=== PATIENT | male | born 1945 | race Caucasian/White ===

== ENCOUNTER 2020-12-13 05:59 | Outpatient (REF) | payer MEDICARE, SELFPAY ==
[2020-12-16 14:57] LABS: Free Prostate Spec Ag 1.2 ng/mL; Percent Free Prostate Spec Ag 29 % (calc) (>25); Prostate Specific Ag Total 4.1 ng/mL (< OR = 4.0)
== END 2020-12-13 06:00 | disposition home or self-care (01) ==
LOC: HO.LAB 05:59
PROVIDERS: Visit Provider Urology
DX: N40.1 Benign prostatic hyperplasia with lower urinary tract symptoms (principal); Z12.5 Encounter for screening for malignant neoplasm of prostate
CPT/HCPCS: 36415; 84153; 84154

== ENCOUNTER 2021-03-21 06:05 | Outpatient (REF) | payer MEDICARE, SELFPAY ==
[2021-03-21 07:52] LABS: PSA,Total (Free>4and<10) 3.12 ng/mL (0.00-4.00)
== END 2021-03-21 06:06 | disposition home or self-care (01) ==
LOC: HO.LAB 06:05
PROVIDERS: PCP Internal Medicine; Visit Provider Urology
DX: N40.1 Benign prostatic hyperplasia with lower urinary tract symptoms (principal); Z12.5 Encounter for screening for malignant neoplasm of prostate
CPT/HCPCS: 36415; 84153

== ENCOUNTER → 2021-03-26 13:36 | Outpatient (BNVA) | payer MEDICARE, SELFPAY | PROVIDERS: PCP Internal Medicine; Visit Provider Urology | DX: N52.9 Male erectile dysfunction, unspecified (principal); N40.1 Benign prostatic hyperplasia with lower urinary tract symptoms | CPT/HCPCS: 99212 ==

== ENCOUNTER 2021-09-22 06:07 | Outpatient (REF) | payer MEDICARE, SELFPAY ==
[2021-09-22 07:48] LABS: Prostate Specific Antigen 2.89 ng/mL (<0.05-4.0)
== END 2021-09-22 06:08 | disposition home or self-care (01) ==
LOC: HO.LAB 06:07
PROVIDERS: PCP Internal Medicine; Visit Provider Urology
DX: Z12.5 Encounter for screening for malignant neoplasm of prostate (principal); N40.1 Benign prostatic hyperplasia with lower urinary tract symptoms; N13.8 Other obstructive and reflux uropathy
CPT/HCPCS: 36415; 84153

== ENCOUNTER → 2021-10-03 12:30 | Outpatient (BNVA) | payer MEDICARE, SELFPAY | PROVIDERS: PCP Internal Medicine; Visit Provider Urology | CPT/HCPCS: Q3014 ==

== ENCOUNTER 2022-01-13 06:00 | Outpatient (REF) | payer MEDICARE, SELFPAY ==
[2022-01-13 08:15] LABS: PSA,Total (Free>4and<10) 1.84 ng/mL (0.00-4.00)
== END 2022-01-13 06:01 | disposition home or self-care (01) ==
LOC: HO.LAB 06:00
PROVIDERS: PCP Internal Medicine; Visit Provider Urology
DX: Z12.5 Encounter for screening for malignant neoplasm of prostate (principal); N40.1 Benign prostatic hyperplasia with lower urinary tract symptoms
CPT/HCPCS: 36415; 84153

== ENCOUNTER → 2022-01-21 10:34 | Outpatient (BNVA) | payer MEDICARE, SELFPAY | PROVIDERS: PCP Internal Medicine; Visit Provider Urology | DX: N40.1 Benign prostatic hyperplasia with lower urinary tract symptoms (principal); R35.1 Nocturia; R39.15 Urgency of urination; N52.9 Male erectile dysfunction, unspecified; Z79.899 Other long term (current) drug therapy | CPT/HCPCS: Q3014 ==

== ENCOUNTER 2022-07-21 06:01 | Outpatient (REF) | payer MEDICARE, SELFPAY ==
[2022-07-21 08:12] LABS: Prostate Specific Antigen 0.97 ng/mL (<0.05-4.0)
== END 2022-07-21 06:02 | disposition home or self-care (01) ==
LOC: HO.LAB 06:01
PROVIDERS: PCP Internal Medicine; Visit Provider Urology
DX: Z12.5 Encounter for screening for malignant neoplasm of prostate (principal); N52.9 Male erectile dysfunction, unspecified
CPT/HCPCS: 36415; 84153

== ENCOUNTER → 2022-07-29 10:01 | Outpatient (BNVA) | payer MEDICARE, SELFPAY | PROVIDERS: PCP Internal Medicine; Visit Provider Urology | DX: N40.1 Benign prostatic hyperplasia with lower urinary tract symptoms (principal); R39.15 Urgency of urination; R35.1 Nocturia; N52.9 Male erectile dysfunction, unspecified | CPT/HCPCS: Q3014 ==

== ENCOUNTER 2023-01-19 06:03 | Outpatient (REF) | payer MEDICARE, SELFPAY ==
[2023-01-19 08:38] LABS: Prostate Specific Antigen 0.89 ng/mL (<0.05-4.0)
== END 2023-01-19 06:04 | disposition home or self-care (01) ==
LOC: HO.LAB 06:03
PROVIDERS: PCP Internal Medicine; Visit Provider Urology
DX: N40.1 Benign prostatic hyperplasia with lower urinary tract symptoms (principal); Z12.5 Encounter for screening for malignant neoplasm of prostate
CPT/HCPCS: 36415; 84153

== ENCOUNTER → 2023-01-29 11:41 | Outpatient (BNVA) | payer MEDICARE, SELFPAY | PROVIDERS: PCP Internal Medicine; Visit Provider Urology | DX: N52.9 Male erectile dysfunction, unspecified (principal); N40.1 Benign prostatic hyperplasia with lower urinary tract symptoms; R39.15 Urgency of urination; R35.1 Nocturia | CPT/HCPCS: 51798; 99212 ==

== ENCOUNTER 2023-08-03 09:18 | Outpatient (AMB) | payer MEDICARE, SELFPAY ==
--- NOTE | 2023-08-03 09:22 | MHC.OFFVIS ---
Intake Intake Visit Reasons: 6M PVR Intake Note: Patient is present for PVR Urology Med: Finasteride, Tadalafil (Patient is no longer on Tamsulosin) Antibiotic Allergy: Cipro, Amoxicillin Blood Thinner: None Pharmacy: [facility] PVR: 0 Allergies Amoxicillin Trihydrate Allergy (Unknown, Verified 08/03/23 09:27) Unknown ciprofloxacin [Cipro HC] Allergy (Unknown, Verified 08/03/23 09:27) Unknown hydrocortisone [Cipro HC] Allergy (Unknown, Verified 08/03/23 09:27) Unknown HPI HPI Comments History of Present Illness Details Hernan is a pleasant male. He is a patient of Dr. Chavez. He is here for follow urologic condition - bladder outlet obstruction - erectile dysfunction PVR low Continued good response to finasteride with PSA - takes Wednesday, Wednesday, Wednesday PSA 07/04 2.9, 12/05 4.1, 04/04 3.1, 10/05 2.9, 02/03 1.8, 08/06 1.0, 02/04 0.9, Lower urinary tract symptoms Unable to take higher alpha-alba - secondary to hypotension - previously took Flomax Current symptoms mild urgency, nocturia 1-2 Finasteride added previously for persistent urge - good response Therapeutic plan - check PSA in 12 months Erectile dysfunction Has headache with sildenafil 50 mg, had blurry vision with daily 5 mg Cialis May try 20 mg tadalafil on as-needed basis PFSH Medical History Migraine headache Palpitations HTN (hypertension) Osteopenia Diverticulosis Hypercholesterolemia Erectile dysfunction Benign prostatic hyperplasia with lower urinary tract symptoms Review of Systems Const Denies chills and Denies fever(s) Card Reports no additional complaints and Denies syncope Resp Denies cough GI Denies abdominal pain and Denies heartburn Reports as per HPI and Denies change in libido Neuro Denies syncope Psych Denies change in libido Endo Denies change in libido Physical Exam Const General: cooperative, healthy appearing, comfortable and no acute distress Orientation/consciousness: patient oriented x3 HEENT Face and sinus: Yes normal facial exam Mouth: moist mucous membranes Neck Neck: Yes normal visual inspection, Yes full ROM and Yes trachea midline Chest Chest palpation & inspection: normal inspection of the chest Resp Effort & Inspection: normal respiratory effort, able to speak in complete sentences and no respiratory distress GI Inspection: Yes normal to inspection Back/Spine/Pelvis Cervical Spine: normal cervical lordosis Thoracic/Lumbar Spine: thoracic and lumbar spine normal to inspection Skin General skin exam: no rashes or lesions noted Neuro General: patient oriented x3, gait normal, tone normal and moves all extremities Extrem General: Yes normal to inspection and Yes capillary refill normal Office Procedures Post Void Residual Post Residual Void Post Void Residual (PVR): 0 25377-Tbqx Void Residual by ultrasound Assessment & Plan Assessment & Plan (1) Benign prostatic hyperplasia with lower urinary tract symptoms: Code(s): N40.1 - Benign prostatic hyperplasia with lower urinary tract symptoms (2) Erectile dysfunction: Code(s): N52.9 - Male erectile dysfunction, unspecified Plan Twelve month follow-up Orders: Orders AMB Post Void Residual by ultrasound Today N40.1 - Benign prostatic hyperplasia with lower urinary tract symptoms AMB Urinalysis Automated Today Z13.9 - Encounter for screening, unspecified PSA,Total (Free>4and<10) 364 Days N40.1 - Benign prostatic hyperplasia with lower urinary tract symptoms Patient Instructions: Imaging studies, laboratory and physical exam results were discussed and reviewed in detail. No major barriers to patient understanding were identified. An opportunity to ask questions regarding the treatment plan was provided. All questions were answered. The patient expressed understanding and agreement with the above treatment plan. The patient is aware they should contact our office by phone for worsening of their current condition or the appearance of new urologic symptoms. Compliance is encouraged with any medications and followup testing that is ordered. It is a privilege to participate in the urologic care of your patient. If you have any questions or concerns regarding treatment for the above conditions, or other urologic issues, please do not hesitate to contact me. The office telephone contact is [phone]. This note is constructed using voice recognition software. While every effort has been made to ensure accuracy passenger car inspector errors may have been included. Yours sincerely, Dr Gumaro Caba MD, [facility] - Urology Providers of Expert, Compassionate Care for the Genitourinary System Coding Level of Care Code Est Pt Level 4 (43197) Diagnoses Benign prostatic hyperplasia with lower urinary tract symptoms N40.1 Erectile dysfunction N52.9 CPT Codes Post Residual Void - PVR CPT Code: 29308-Bpdk Void Residual by ultrasound ([id number])
== END 2023-08-03 10:05 | disposition home or self-care (01) ==
PROVIDERS: PCP Internal Medicine; Visit Provider Urology
DX: N40.1 Benign prostatic hyperplasia with lower urinary tract symptoms (principal); N52.9 Male erectile dysfunction, unspecified
CPT/HCPCS: 99214

== ENCOUNTER → 2023-08-03 09:18 | Outpatient (BNVA) | payer MEDICARE, SELFPAY | PROVIDERS: Visit Provider Urology | DX: N40.1 Benign prostatic hyperplasia with lower urinary tract symptoms (principal); N13.8 Other obstructive and reflux uropathy; N52.9 Male erectile dysfunction, unspecified; R35.1 Nocturia | CPT/HCPCS: 51798; 99212 ==

== ENCOUNTER 2024-08-29 06:03 | Outpatient (REF) | payer MEDICARE, SELFPAY | END 2024-08-29 06:04 | disposition home or self-care (01) | LOC: HO.LAB 06:03 | PROVIDERS: PCP Internal Medicine; Visit Provider Urology | DX: N40.1 Benign prostatic hyperplasia with lower urinary tract symptoms (principal); Z12.5 Encounter for screening for malignant neoplasm of prostate | CPT/HCPCS: 36415; 84153 ==

== ENCOUNTER 2024-09-05 10:11 | Outpatient (AMB) | payer MEDICARE, SELFPAY ==
--- NOTE | 2024-09-05 10:14 | MHC.OFFVIS ---
Intake Visit Reasons: 1Y PSA/PVR(set) Intake Note: Patient is present for PVR/PSA Urology Med: Finasteride, Tadalafil (Patient is no longer on Tamsulosin) Antibiotic Allergy: Cipro, Amoxicillin Blood Thinner: None PVR: 0ML'S TODAY'S PVR:0ML'S Stranding Supervisor Required: No Allergies Amoxicillin Trihydrate Allergy (Unknown, Verified 09/05/24 10:15) Unknown ciprofloxacin [Cipro HC] Allergy (Unknown, Verified 09/05/24 10:15) Unknown hydrocortisone [Cipro HC] Allergy (Unknown, Verified 09/05/24 10:15) Unknown HPI Comments Details: Hernan is a pleasant male. He is a patient of Dr. Chavez. 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 Lower urinary tract symptoms Unable to take higher alpha-alba - secondary to hypotension - previously took Flomax Current symptoms mild urgency, nocturia 1-2 Finasteride added previously for persistent urge - good response Therapeutic plan - check PSA in 12 months Erectile dysfunction Has headache with sildenafil 50 mg, had blurry vision with daily 5 mg Cialis May try 20 mg tadalafil on as-needed basis [facility] Medical History Migraine headache Palpitations HTN (hypertension) Osteopenia Diverticulosis Hypercholesterolemia Erectile dysfunction Benign prostatic hyperplasia with lower urinary tract symptoms Review of Systems Const Denies chills and Denies fever(s) Card Reports no additional complaints and Denies syncope Resp Denies cough GI Denies abdominal pain and Denies heartburn Reports as per HPI and Denies change in libido Neuro Denies syncope Psych Denies change in libido Endo Denies change in libido Physical Exam Const General: cooperative, healthy appearing, comfortable and no acute distress Orientation/consciousness: patient oriented x3 HEENT Face and sinus: Yes normal facial exam Mouth: moist mucous membranes Neck Neck: Yes normal visual inspection, Yes full ROM and Yes trachea midline Chest Chest palpation & inspection: normal inspection of the chest Resp Effort & Inspection: normal respiratory effort, able to speak in complete sentences and no respiratory distress GI Inspection: Yes normal to inspection Back/Spine/Pelvis Cervical Spine: normal cervical lordosis Thoracic/Lumbar Spine: thoracic and lumbar spine normal to inspection Skin General skin exam: no rashes or lesions noted Neuro General: patient oriented x3, gait normal, tone normal and moves all extremities Extrem General: Yes normal to inspection and Yes capillary refill normal Office Procedures Post Void Residual Post Residual Void Post Void Residual (PVR): 0 [id number]-Cixq Void Residual by ultrasound Results AMB Urinalysis, Automated UA Leukoctes 0 Franco/uL Last Edit by JOAN Reno on 09/05/24 10:22 UA Nitrite Negative Last Edit by JOAN Reno on 09/05/24 10:22 UA Urobilinogen 0.2 mg/dL Last Edit by JOAN Reno on 09/05/24 10:22 UA Protein 15 mg/dL Last Edit by JOAN Reno on 09/05/24 10:22 UA pH 7.0 Last Edit by JOAN Reno on 09/05/24 10:22 UA Blood 0 Ruben/uL Last Edit by JOAN Reno on 09/05/24 10:22 UA Specific [place] 1.015 Last Edit by JOAN Reno on 09/05/24 10:22 UA Ketone Negative Last Edit by JOAN Reno on 09/05/24 10:22 UA Bilirubin 0 mg/dL Last Edit by JOAN Reno on 09/05/24 10:22 UA Glucose 0 mg/dL Last Edit by JOAN Reno on 09/05/24 10:22 Results Reviewed Results Reviewed: Laboratory Last Values Urine pH (Auto) 7.0 09/05/24 10:20 Specific [place] (Auto) 1.015 09/05/24 10:20 Urine Protein (Auto) 15 mg/dL 09/05/24 10:20 Glucose (UA)(Auto) 0 mg/dL 09/05/24 10:20 Urine Ketones (Auto) Negative 09/05/24 10:20 Urine Blood (Auto) 0 Ruben/uL 09/05/24 10:20 Urine Nitrite (Auto) Negative 09/05/24 10:20 Urine Bilirubin (Auto) 0 mg/dL 09/05/24 10:20 Urine Urobilinogen (Auto) 0.2 mg/dL 09/05/24 10:20 Leukocyte Esterase (Auto) 0 Franco/uL 09/05/24 10:20 Assessment & Plan Assessment & Plan (1) Erectile dysfunction: Code(s): N52.9 - Male erectile dysfunction, unspecified Category: Medical (2) Benign prostatic hyperplasia with lower urinary tract symptoms: Code(s): N40.1 - Benign prostatic hyperplasia with lower urinary tract symptoms Category: Medical Plan Trial tamsulosin Two month follow-up Orders: Orders AMB Urinalysis Automated Today Z13.9 - Encounter for screening, unspecified Medications: New tamsulosin 0.4 mg PO BEDTIME 30 days 30 caps 1RF N40.1 - Benign prostatic hyperplasia with lower urinary tract symptoms, R35.1 - Nocturia Patient Instructions: Imaging studies, laboratory and physical exam results were discussed and reviewed in detail. No major barriers to patient understanding were identified. An opportunity to ask questions regarding the treatment plan was provided. All questions were answered. The patient expressed understanding and agreement with the above treatment plan. The patient is aware they should contact our office by phone for worsening of their current condition or the appearance of new urologic symptoms. Compliance is encouraged with any medications and followup testing that is ordered. It is a privilege to participate in the urologic care of your patient. If you have any questions or concerns regarding treatment for the above conditions, or other urologic issues, please do not hesitate to contact me. The office telephone contact is [phone]. This note is constructed using voice recognition software. While every effort has been made to ensure accuracy pickle sorter errors may have been included. Yours sincerely, Dr Gumaro Caba MD, [facility] - Urology Providers of Expert, Compassionate Care for the Genitourinary System Coding Level of Care Code Est Pt Level 4 (80152) Diagnoses Erectile dysfunction N52.9 Benign prostatic hyperplasia with lower urinary tract symptoms N40.1 CPT Codes Post Residual Void - PVR CPT Code: 49720-Xfof Void Residual by ultrasound ([id number])
== END 2024-09-05 10:59 | disposition home or self-care (01) ==
PROVIDERS: PCP Internal Medicine; Referring Provider Internal Medicine; Visit Provider Urology
DX: N52.9 Male erectile dysfunction, unspecified (principal); N40.1 Benign prostatic hyperplasia with lower urinary tract symptoms; Z13.9 Encounter for screening, unspecified
CPT/HCPCS: 99214

== ENCOUNTER → 2024-09-05 10:11 | Outpatient (BNVA) | payer MEDICARE, SELFPAY | PROVIDERS: PCP Internal Medicine; Visit Provider Urology | DX: N40.1 Benign prostatic hyperplasia with lower urinary tract symptoms (principal); N13.8 Other obstructive and reflux uropathy; N32.0 Bladder-neck obstruction; N52.9 Male erectile dysfunction, unspecified | CPT/HCPCS: 51798; 81003; 99212 ==

== ENCOUNTER 2024-10-18 10:50 | Outpatient (AMB) | payer MEDICARE, SELFPAY ==
--- NOTE | 2024-10-18 10:50 | A.OFFVIS_ITS ---
Intake Visit Reasons: 2M Med Review(tamsulosin) Intake Note: Patient is present for 2M MED REVIEW Urology Medication:TAMSULOSIN Antibiotic Allergy:AMOXICILLIN,CIPROFLOXACIN Blood Thinner:NONE Blender Machine Operator Required: No Allergies Amoxicillin Trihydrate Allergy (Unknown, Verified 10/18/24 10:51) Unknown ciprofloxacin [Cipro HC] Allergy (Unknown, Verified 10/18/24 10:51) Unknown hydrocortisone [Cipro HC] Allergy (Unknown, Verified 10/18/24 10:51) Unknown HPI Comments Details: Hernan is a pleasant male. He is a patient of Dr. Chavez. 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 Lower urinary tract symptoms Unable to take higher alpha-alba - secondary to hypotension - previously took Flomax Current symptoms mild urgency, nocturia 1-2 Finasteride added previously for persistent urge - good response Therapeutic plan - check PSA in 12 months Erectile dysfunction Has headache with sildenafil 50 mg, had blurry vision with daily 5 mg Cialis May try 20 mg tadalafil on as-needed basis PFSH Medical History Migraine headache Palpitations HTN (hypertension) Osteopenia Diverticulosis Hypercholesterolemia Erectile dysfunction Benign prostatic hyperplasia with lower urinary tract symptoms Review of Systems Const Denies chills and Denies fever(s) Card Reports no additional complaints and Denies syncope Resp Denies cough GI Denies abdominal pain and Denies heartburn Reports as per HPI and Denies change in libido Neuro Denies syncope Psych Denies change in libido Endo Denies change in libido Physical Exam Const General: cooperative, healthy appearing, comfortable and no acute distress Orientation/consciousness: patient oriented x3 HEENT Face and sinus: Yes normal facial exam Mouth: moist mucous membranes Neck Neck: Yes normal visual inspection, Yes full ROM and Yes trachea midline Chest Chest palpation & inspection: normal inspection of the chest Resp Effort & Inspection: normal respiratory effort, able to speak in complete sentences and no respiratory distress GI Inspection: Yes normal to inspection Back/Spine/Pelvis Cervical Spine: normal cervical lordosis Thoracic/Lumbar Spine: thoracic and lumbar spine normal to inspection Skin General skin exam: no rashes or lesions noted Neuro General: patient oriented x3, gait normal, tone normal and moves all extremities Extrem General: Yes normal to inspection and Yes capillary refill normal Assessment & Plan Assessment & Plan (1) Benign prostatic hyperplasia with lower urinary tract symptoms: Code(s): N40.1 - Benign prostatic hyperplasia with lower urinary tract symptoms Category: Medical (2) Erectile dysfunction: Code(s): N52.9 - Male erectile dysfunction, unspecified Category: Medical Plan Renew prescriptions Six-month follow-up PVR Medications: New tadalafil On demand medication take 60 minutes before intended activity - [facility] [address] [id number] 20 mg PO ONCE PRN 30 tabs 0RF sexual activity 30 days N52.9 - Male erectile dysfunction, unspecified Changed From tamsulosin 0.4 mg PO BEDTIME 30 days 30 caps 1RF N40.1 - Benign prostatic hyperplasia with lower urinary tract symptoms, R35.1 - Nocturia To tamsulosin 0.4 mg PO BEDTIME 90 caps 1RF 90 days N40.1 - Benign prostatic hyperplasia with lower urinary tract symptoms, R35.1 - Nocturia Discontinued tadalafil Discontinued Reason: Patient Completed Course 5 mg PO DAILY 90 days 90 tabs 0RF sexual activity N52.01 - Erectile dysfunction due to arterial insufficiency Patient Instructions: Imaging studies, laboratory and physical exam results were discussed and reviewed in detail. No major barriers to patient understanding were identified. An opportunity to ask questions regarding the treatment plan was provided. All questions were answered. The patient expressed understanding and agreement with the above treatment plan. The patient is aware they should contact our office by phone for worsening of their current condition or the appearance of new urologic symptoms. Compliance is encouraged with any medications and followup testing that is ordered. It is a privilege to participate in the urologic care of your patient. If you h ave any questions or concerns regarding treatment for the above conditions, or other urologic issues, please do not hesitate to contact me. The office telephone contact is [phone]. This note is constructed using voice recognition software. While every effort has been made to ensure accuracy epic application coordinator errors may have been included. Yours sincerely, Dr Gumaro Caba MD, [facility] - Urology Providers of Expert, Compassionate Care for the Genitourinary System Coding Level of Care Code Est Pt Level 4 (90183) Diagnoses Benign prostatic hyperplasia with lower urinary tract symptoms N40.1 Erectile dysfunction N52.9
== END 2024-10-18 12:33 | disposition home or self-care (01) ==
LOC: HO.HUSH 10:50
PROVIDERS: PCP Internal Medicine; Visit Provider Urology
DX: N40.1 Benign prostatic hyperplasia with lower urinary tract symptoms (principal); N52.9 Male erectile dysfunction, unspecified
CPT/HCPCS: 99214

== ENCOUNTER → 2024-10-18 10:50 | Outpatient (BNVA) | payer MEDICARE, SELFPAY | PROVIDERS: PCP Internal Medicine; Visit Provider Urology | DX: N40.1 Benign prostatic hyperplasia with lower urinary tract symptoms (principal); R35.1 Nocturia; N52.01 Erectile dysfunction due to arterial insufficiency | CPT/HCPCS: 99212 ==

== ENCOUNTER 2025-04-17 09:59 | Outpatient (AMB) | payer MEDICARE, SELFPAY ==
--- NOTE | 2025-04-17 10:00 | MHC.OFFVIS ---
Intake Visit Reasons: 6m f/u pvr Intake Note: Patient is present for 6M/PVR Urology Medication:TAMSULOSIN,FINASTERIDE,TADALAFIL Antibiotic Allergy:AMOXICILLIN CIPROFLOXACIN Blood Thinner:NONE Todays PVR:0ML'S Gas Appliance Servicer Required: No Allergies Amoxicillin Trihydrate Allergy (Unknown, Verified 04/17/25 10:02) Unknown ciprofloxacin [Cipro HC] Allergy (Unknown, Verified 04/17/25 10:02) Unknown hydrocortisone [Cipro HC] Allergy (Unknown, Verified 04/17/25 10:02) Unknown HPI Comments Details: Hernan is a pleasant male. He is a patient of Dr. Chavez. He is here for follow urologic condition - bladder outlet obstruction - erectile dysfunction Six-month follow-up Previously with Retrial of tamsulosin due to nocturia Re trial tadalafil 20 mg for erectile function Did have decrease in nocturia with restarting tamsulosin. Has noticed weak stream and on questioning less than 12 in. Had reaction to tadalafil so stopped using Recommend office uroflow with cystoscopy Continued good response to finasteride with PSA - takes Wednesday, Wednesday, Wednesday PSA 07/04 2.9, 12/05 4.1, 04/04 3.1, 10/05 2.9, 02/03 1.8, 08/06 1.0, 02/04 0.9, 09/07 1.2 Urinary Symptoms Review - Frequency of nocturia: Typically twice per night, up to four times per night with excessive fluid intake. - Urination stream: Reported as weak. - Emptying bladder: Occurring without issue. - Urine odor: Noted as strong; advised to increase fluid intake. - Current medications: Tamsulosin restarted for nocturia, finasteride taken Mondays, Wednesdays, and Fridays. - Previous attempt to use tadalafil for erectile dysfunction resulted in visual disturbances, leading to discontinuation. Lower urinary tract symptoms Unable to take higher alpha-alba - secondary to hypotension - previously took Flomax Current symptoms mild urgency, nocturia 1-2 Finasteride added previously for persistent urge - good response Therapeutic plan - check PSA yearly Erectile dysfunction Has headache with sildenafil 50 mg, had blurry vision with daily 5 mg Cialis May try 20 mg tadalafil on as-needed basis PFSH Medical History Migraine headache Palpitations HTN (hypertension) Osteopenia Diverticulosis Hypercholesterolemia Erectile dysfunction Benign prostatic hyperplasia with lower urinary tract symptoms Review of Systems Const Denies chills and Denies fever(s) Card Reports no additional complaints and Denies syncope Resp Denies cough GI Denies abdominal pain and Denies heartburn Reports as per HPI and Denies change in libido Neuro Denies syncope Psych Denies change in libido Endo Denies change in libido Physical Exam Const General: cooperative, healthy appearing, comfortable and no acute distress Orientation/consciousness: patient oriented x3 HEENT Face and sinus: Yes normal facial exam Mouth: moist mucous membranes Neck Neck: Yes normal visual inspection, Yes full ROM and Yes trachea midline Chest Chest palpation & inspection: normal inspection of the chest Resp Effort & Inspection: normal respiratory effort, able to speak in complete sentences and no respiratory distress GI Inspection: Yes normal to inspection Back/Spine/Pelvis Cervical Spine: normal cervical lordosis Thoracic/Lumbar Spine: thoracic and lumbar spine normal to inspection Skin General skin exam: no rashes or lesions noted Neuro General: patient oriented x3, gait normal, tone normal and moves all extremities Extrem General: Yes normal to inspection and Yes capillary refill normal Office Procedures Post Void Residual Post Residual Void Post Void Residual (PVR): 0 81629-Alux Void Residual by ultrasound Assessment & Plan Assessment & Plan (1) Benign prostatic hyperplasia with lower urinary tract symptoms: Code(s): N40.1 - Benign prostatic hyperplasia with lower urinary tract symptoms Category: Medical (2) Erectile dysfunction: Code(s): N52.9 - Male erectile dysfunction, unspecified Category: Medical Plan Plan 1. Lower Urinary Tract Symptoms Luts Plan: Schedule uroflowmetry and possible cystoscopy. Continue current medications and reassess post-evaluation. 2. Nocturia Plan: Monitor nocturia frequency. Recommend increased hydration. Discuss fluid intake impacts on nocturia. 3. Adverse Medication Effects - Visual Disturbance Plan: Discontinue tadalafil and sildenafil due to visual side effects. Discuss alternative options if needed. Discussion Notes During our discussion, I addressed the patient's ongoing Lower Urinary Tract Symptoms (LUTS) and nocturia despite medication adjustments. We emphasized the weak urinary stream and planned further diagnostic evaluations, including uroflowmetry and cystoscopy, to assess bladder function. We reviewed the side effects experienced with tadalafil and sildenafil, specifically visual disturbances, and agreed on discontinuing these medications due to adverse effects. I emphasized the importance of cautious fluid intake to manage nocturia and discussed why increased hydration might help mitigate strong urine odor. We concluded with a plan to follow up on diagnostic results to determine the necessity of procedural intervention for the urinary stream problems. Patient Instructions - Drink more water and less Propel to improve urine odor. - Maintain current medication schedule: tamsulosin daily and finasteride on Mon/Wed/Fri. - Avoid excessive fluids in the evening to reduce nocturia. - Discontinue sildenafil and tadalafil due to vision issues. - Follow care instructions post-uroflow testing and cystoscopy if required. - Contact the office if experiencing worsening urinary symptoms or other concerns. Patient Instructions: This note is constructed using voice recognition software. While every effort has been made to ensure accuracy vp software engineering errors may have been included. Imaging studies, laboratory and physical exam results were discussed and reviewed in detail. No major barriers to patient understanding were identified. An opportunity to ask questions regarding the treatment plan was provided. All questions were answered. The patient expressed understanding and agreement with the above treatment plan. The patient is aware they should contact our office by phone for worsening of their current condition or the appearance of new urologic symptoms. Compliance is encouraged with any medications and followup testing that is ordered. It is a privilege to participate in the urologic care of your patient. If you have any questions or concerns regarding treatment for the above conditions, or other urologic issues, please do not hesitate to contact me. The office telephone contact is [phone]. Sincerely, Dr Gumaro Caba MD, [facility] - Urology Compassionate Specialist Care for the Genitourinary System Coding Level of Care Code Est Pt Level 3 (56975) Complex EM visit Add On G2211 Diagnoses Benign prostatic hyperplasia with lower urinary tract symptoms N40.1 Erectile dysfunction N52.9 CPT Codes Post Residual Void - PVR CPT Code: 53337-Xetb Void Residual by ultrasound ([id number])
--- OUTSIDE RECORDS SUMMARY | 2025-04-17 11:24 | XMS_ITS | Clinical Summary ---
Author Organization [facility] Address [address] [facility] [facility] [address] [place] [address] Phone Care Team Providers Care Transit Operator Name Role Phone Pete Chavez MD Primary Care Provider [phone] Allergies Active Allergy Reactions Criticality Noted Date Comments Amoxicillin Other (see comments) 04/29/2021 Ciprofloxacin Other (see comments) 04/29/2021 Medications Calcium Carb-Magnesium Carb 250-300 MG tablet Take 1 tablet by mouth 1 (one) time each day Active Garlic 1000 MG capsule Take 1 capsule by mouth 1 (one) time each day Active Multiple Vitamins-Mineral s (MULTIVITAMIN ADULTS 50+ PO) Take 1 capsule by mouth 1 (one) time each day Active aspirin (ST SCOTTIE) 81 MG EC tablet Take 1 tablet by mouth 1 (one) time each day Active albuterol HFA (PROVENTIL HFA;VENTOLIN HFA) 108 (90 Base) MCG/ACT inhaler Inhale 2 puffs 1 (one) time if needed 9 Active atorvastatin (LIPITOR) 20 MG tablet Take 1 tablet by mouth 1 (one) time each day in the evening 9 Active lisinopril (PRINIVIL,ZESTRI L) 20 MG tablet Take 1 tablet by mouth 2 (two) times a day Active acebutolol (SECTRAL) 200 MG capsule Take 1 capsule by mouth 1 (one) time each day Active sildenafil (VIAGRA) 25 MG tablet Comments: Patient Notes: takes 20-40mg if needed Active betamethasone dipropionate 0.05 % cream by Other route 2 (two) times a day if needed Active fluticasone (FLONASE) 50 MCG/ACT nasal spray Administer 2 puffs into each nostril 1 (one) time each day if needed Active Cholecalciferol 50 MCG (2000 UT) capsule Take 1 capsule by mouth 1 (one) time each day Active finasteride (PROSCAR) 5 MG tablet Take 5 mg by mouth 1 (one) time each day Active amLODIPine (NORVASC) 2.5 MG tablet Take 1 tablet (2.5 mg total) by mouth 1 (one) time each day in the morning 90 tablet 3 3 Active Additional Information Patient taking differently:2.5 mg Oral2 times daily, Reported on 10/28/2023 Active Problems Problem Noted Date Diagnosed Date Cyst of kidney 10/28/2021 Benign prostatic hyperplasia 10/28/2021 Stage 3a chronic kidney disease 04/30/2021 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 04/30/2021 Dyslipidemia 04/29/2021 Hypertension 04/29/2021 Palpitations 04/29/2021 Resolved Problems Problem Noted Date Diagnosed Date Resolved Date Chronic kidney disease stage 2 04/29/2021 04/30/2021 Pure hypercholesterolemia 04/29/2021 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 0 04/30/2021 Immunizations Immunization Administration Dates Next Due Influenza Split High Dose Pr eservative Free IM 08/09/2020,08/30/2019,08/28/2018,08/08,08/25/2016 Influenza TIV (IM) 09/12/2015,08/26/2014, 013 Pneumococcal Conjugate 13-Valent 01/14/2016 Pneumococcal Polysaccharide 04/21/2010 Td 05/26/2018 Tdap 01/02/2010 Family History Medical History Relation Comments Cancer Father colon Heart disease Father Hypertension Father Diabetes Mother Diabetes Sibling 1 Hypertension Sibling 2 Relation Status Comments Father Mother Sibling 1 Sibling 2 Social History Tobacco Use Types Packs/Day Years Used Date Smoking Tobacco: Never Smokeless Tobacco: Never Alcohol Use Standard Drinks/Week Comments Yes 0 (1 standard drink = 0.6 oz pure alcohol) Alcoholic Drinks/day: Occasional social drink Sex and Gender Information Value Date Recorded Sex Assigned at Not on file Legal Sex Male 4:53 PM EST Gender Identity Not on file Sexual Orientation Not on file Last Filed Vital Signs Vital Sign Reading Time Taken Comments Blood Pressure 146/78 10/28/2023 10:01 AM EST Pulse 60 10/28/2023 10:01 AM EST Temperature - - Respiratory Rate - - Oxygen Saturation 98% 10/28/2023 10:01 AM EST Inhaled Oxygen Concentration - - Weight 71 kg (156 lb 9.6 oz) 10/28/2023 10:01 AM EST Height 170.2 cm (5' 7 ) 10/28/2023 10:01 AM EST Body Mass Index 24.53 10/28/2023 10:01 AM EST Plan of Treatment Health Maintenance Due Date Last Done Comments Pneumococcal Vaccine: 50+ Years Completed 01/14/2016, 04/21/2010 Pneumococcal Vaccine: Peds (0 to 5 Years) and At-Risk Patients (6 to 49 Years) Discontinued 01/14/2016, 04/21/2010 Influenza Vaccine Completed 09/28/2024, , 10/26/2022, Additional history exists Hepatitis B Vaccine Aged Out No longe r eligible based on patient's age to complete this topic Insurance [employer] Medicare [place] [id number] [employer] Medicare Care Teams Transit Operator Relationship Specialty Start Date End Date Pete Chavez MD PCP - General 11/25/20
== END 2025-04-17 10:59 | disposition home or self-care (01) ==
LOC: HO.HUSH 09:59
PROVIDERS: PCP Internal Medicine; Visit Provider Urology
DX: N40.1 Benign prostatic hyperplasia with lower urinary tract symptoms (principal); N52.9 Male erectile dysfunction, unspecified
CPT/HCPCS: 99213; G2211

== ENCOUNTER → 2025-04-17 09:59 | Outpatient (BNVA) | payer MEDICARE, SELFPAY | PROVIDERS: PCP Internal Medicine; Visit Provider Urology | DX: N52.9 Male erectile dysfunction, unspecified (principal); N40.1 Benign prostatic hyperplasia with lower urinary tract symptoms; N13.8 Other obstructive and reflux uropathy | CPT/HCPCS: 51798; 99212 ==

== ENCOUNTER 2025-08-22 10:15 | Outpatient (AMB) | payer MEDICARE, SELFPAY ==
--- NOTE | 2025-08-22 10:26 | MHC.OFFVIS ---
Intake Visit Reasons: Uroflow/ Cystoscopy Intake Note: Patient is present for Cystoscopy / Uroflow Urology Medication:TAMSULOSIN,FINASTERIDE,TADALAFIL Antibiotic Allergy:AMOXICILLIN CIPROFLOXACIN Blood Thinner:NONE PVR : 0 mls Modern Languages Professor Required: No Accompanied by: Self / Same As Patient Allergies Amoxicillin Trihydrate Allergy (Unknown, Verified 08/22/25 10:33) Unknown ciprofloxacin (Cipro HC) Allergy (Unknown, Verified 08/22/25 10:33) Unknown hydrocortisone (Cipro HC) Allergy (Unknown, Verified 08/22/25 10:33) Unknown HPI Comments Details: Hernan is a pleasant male. He is a patient of Dr. Chavez. He is here for follow urologic condition - bladder outlet obstruction - erectile dysfunction Tamsulosin with nocturia x2 On cystoscopy has bilobar impingement Uroflow shows - not enough in bladder to perform Continued good response to finasteride with PSA - takes Wednesday, Wednesday, Wednesday PSA 07/04 2.9, 12/05 4.1, 04/04 3.1, 10/05 2.9, 02/03 1.8, 08/06 1.0, 02/04 0.9, 09/07 1.2 Urinary Symptoms Review - Frequency of nocturia: Typically twice per night, up to four times per night with excessive fluid intake. - Urination stream: Reported as weak. - Emptying bladder: Occurring without issue. - Urine odor: Noted as strong; advised to increase fluid intake. - Current medications: Tamsulosin restarted for nocturia, finasteride taken Mondays, Wednesdays, and Fridays. - Previous attempt to use tadalafil for erectile dysfunction resulted in visual disturbances, leading to discontinuation. Lower urinary tract symptoms Unable to take higher alpha-alba - secondary to hypotension - previously took Flomax Current symptoms mild urgency, nocturia 1-2 Finasteride added previously for persistent urge - good response Therapeutic plan - check PSA yearly Erectile dysfunction Has headache with sildenafil 50 mg, had blurry vision with daily 5 mg Cialis May try 20 mg tadalafil on as-needed basis [facility] Medical History Migraine headache Palpitations HTN (hypertension) Osteopenia Diverticulosis Hypercholesterolemia Erectile dysfunction Benign prostatic hyperplasia with lower urinary tract symptoms Review of Systems Const Denies chills and Denies fever(s) Card Reports no additional complaints and Denies syncope Resp Denies cough GI Denies abdominal pain and Denies heartburn Reports as per HPI and Denies change in libido Neuro Denies syncope Psych Denies change in libido Endo Denies change in libido Physical Exam Const General: cooperative, healthy appearing, comfortable and no acute distress Orientation/consciousness: patient oriented x3 HEENT Face and sinus: Yes normal facial exam Mouth: moist mucous membranes Neck Neck: Yes normal visual inspection, Yes full ROM and Yes trachea midline Chest Chest palpation & inspection: normal inspection of the chest Resp Effort & Inspection: normal respiratory effort, able to speak in complete sentences and no respiratory distress GI Inspection: Yes normal to inspection Back/Spine/Pelvis Cervical Spine: normal cervical lordosis Thoracic/Lumbar Spine: thoracic and lumbar spine normal to inspection Skin General skin exam: no rashes or lesions noted Neuro General: patient oriented x3, gait normal, tone normal and moves all extremities Extrem General: Yes normal to inspection and Yes capillary refill normal Office Procedures Cystoscopy Consent Discussed risk and benefit or proposed procedure with the patient. Information consent for procedure given to the patient. Discussed technical aspects, risks, benefits and alternatives in full. Addressed all of the patient's questions and concerns regarding the procedure. The patient demonstrated knowledge and understanding. They wish to proceed with this procedure. Preparation The patient was prepped in the usual manner. A commissary production supervisor was present and in the room. Genitalia was prepped with betadine solution in a sterile manner. Lidocaine Jelly 2% was placed into the urethra and 16Fr flexible Olympus cystoscope was inserted into the meatus after adequate lubrication. Procedure Consent confirmed Genitalia prepped and draped using topical antiseptic and lidocaine jelly Clamp placed on penile glans to allow adequate dwell contact time with anesthetic Cystoscopy performed using a sterile disposable Urovue digital 16 Bruneian cystoscope Meatus circumcised Urethra anterior and posterior urethra normal Prostatic Urethra bilateral - lateral lobe encroachment Bladder examination with retroflexion of cystoscope Bladder Orifices normal shape and position Bladder Capacity Normal Trabeculations Grade 0 Cellule Formation None Diverticulum Formation None Mucosal Erythema None Bladder Tumor None Patient tolerated procedure 38799-[id number] DISPOSABLE SCOPE URO-G FLEXIBLE SCOPE Procedure code (CPT) selection complete Post Void Residual Post Residual Void Post Void Residual (PVR): 0 [id number] Void Residual by ultrasound Office Meds lidocaine HCl 2 % mucosal jelly in applicator Performing Provider: Gumaro Caba MD Performing Location: [facility] Administered by: Jeri Ibarra RN on 08/22/25 10:57 Dose Route Admin Location Dispensed Lot Number Expiration Date NDC Ios Developer 10 mL intra-urethral 10 mL nitrofurantoin monohydrate/macrocrystals 100 mg capsule Performing Provider: Gumaro Caba MD Performing Location: [facility] Administered by: Jeri Ibarra RN on 08/22/25 10:57 Dose Route Admin Location Dispensed Lot Number Expiration Date NDC Ios Developer 100 mg PO 1 cap Assessment & Plan Assessment & Plan (1) Benign prostatic hyperplasia with lower urinary tract symptoms: Code(s): N40.1 - Benign prostatic hyperplasia with lower urinary tract symptoms Category: Medical (2) Erectile dysfunction: Code(s): N52.9 - Male erectile dysfunction, unspecified Category: Medical Plan Increase tamsulosin to 0.8 mg q.h.s. Orders: Orders AMB Cystoscopy 08/22/25 N40.1 - Benign prostatic hyperplasia with lower urinary tract symptoms Medications: Changed From tamsulosin 0.4 mg PO BEDTIME 90 days 90 caps 1RF N40.1 - Benign prostatic hyperplasia with lower urinary tract symptoms To tamsulosin 0.8 mg (2 x 0.4 mg) PO BEDTIME 180 caps 1RF 90 days N40.1 - Benign prostatic hyperplasia with lower urinary tract symptoms Patient Instructions: This note is constructed using voice recognition software. While every effort has been made to ensure accuracy front sight attacher errors may have been included. Imaging studies, laboratory and physical exam results were discussed and reviewed in detail. No major barriers to patient understanding were identified. An opportunity to ask questions regarding the treatment plan was provided. All questions were answered. The patient expressed understanding and agreement with the above treatment plan. The patient is aware they should contact our office by phone for worsening of their current condition or the appearance of new urologic symptoms. Compliance is encouraged with any medications and followup testing that is ordered. It is a privilege to participate in the urologic care of your patient. If you have any questions or concerns regarding treatment for the above conditions, or other urologic issues, please do not hesitate to contact me. The office telephone contact is [phone]. Sincerely, Dr Gumaro Caba MD, [facility] - Urology Compassionate Specialist Care for the Genitourinary System Coding Level of Care Code Est Pt Level 3 (03725) Diagnoses Benign prostatic hyperplasia with lower urinary tract symptoms N40.1 Erectile dysfunction N52.9 CPT Codes Cystoscopy - CPT: 38262-Rafghydeef ([id number]) Post Residual Void - PVR CPT Code: 34787-Ggmg Void Residual by ultrasound ([id number])
== END 2025-08-22 11:39 | disposition home or self-care (01) ==
LOC: HO.HUSH 10:16
PROVIDERS: PCP Internal Medicine; Visit Provider Urology
DX: N40.1 Benign prostatic hyperplasia with lower urinary tract symptoms (principal)
CPT/HCPCS: 52000; 99213

== ENCOUNTER → 2025-08-22 10:15 | Outpatient (BNVA) | payer MEDICARE, SELFPAY | PROVIDERS: PCP Internal Medicine; Visit Provider Urology | DX: N40.1 Benign prostatic hyperplasia with lower urinary tract symptoms (principal); N13.8 Other obstructive and reflux uropathy; N52.9 Male erectile dysfunction, unspecified | CPT/HCPCS: 51798; 52000; 99212 ==